=== PATIENT | female | born 1980 | race American Indian/Alaskan Native ===

== ENCOUNTER 2022-02-23 16:37 | Emergency (ER) | payer OTHER ==
[2022-02-23] MEDS ORDERED: levETIRAcetam 1000 MG/NS 0.75% 1,000 MG/100 ML BAG IV ONE (17:08)
--- NOTE | 2022-02-23 17:12 | Emergency Department Report ---
HPI - General Chief Complaint: Seizure Time Seen by Provider: 02/23/22 17:08 - HPI HPI: Room 8 Patient is a 41-year-old female present with chief complaint of seizures. Patient had her first seizure of life approximate 2 months ago and was started on Keppra. Per the the patient has been compliant with the medication and was in the neurologist office today waiting to be seen for follow-up when she had a generalized tonic-clonic seizure. Patient was never seen by the neurologist and EMS was called and patient was transported to the ED. Patient is currently postictal. The patient had a CT head performed at [facility] 02/17/2022 which revealed no acute intracranial abnormalities. ED Past Medical Hx - Past Medical History Hx Headaches / Migraines: Yes Hx Seizures: Yes - Surgical History Past Surgical History?: No - Family History Family history: no significant - Social History Smoking Status: Unknown if ever smoked Substance Use Type: None - Medications Home Medications: Home Medications Medication Instructions Recorded Confirmed Last Taken Type Butalb/Acetamin/Caff 50-325-40 2 tab PO Q8HR PRN #20 tablet 02/23/22 Unknown Rx [Fioricet 50-325-40] ED Review of Systems ROS: Stated complaint: SEIZURE Other details as noted in HPI Comment: Unobtainable due to pts medical conditions Physical Exam - Physical Exam Vital Signs: Vital Signs 02/23/22 17:02 Pulse Rate 95 H Respiratory 18 Rate Blood Pressure 138/72 [Right] O2 Sat by Pulse 99 Oximetry Physical Exam: GENERAL: The patient is well-developed well-nourished female postictal lying on stretcher. [] HEENT: Normocephalic. Atraumatic. Patient looks upward when her eyelids are opened manually NECK: Supple. Trachea midline CHEST/LUNGS: Clear to auscultation. There is no respiratory distress noted. HEART/CARDIOVASCULAR: Regular. There is no tachycardia. There is no gallop rub or murmur. ABDOMEN: Abdomen is soft, nontender. Patient has normal bowel sounds. There is no abdominal distention. SKIN: There is no rash. There is no edema. There is no diaphoresis. NEURO: The patient is currently postictal and not cooperative with neurologic exam. Patient lying on stretcher with no movement MUSCULOSKELETAL: There is no evidence of acute injury. ED Course Vital Signs 02/23/22 17:02 Pulse Rate 95 H Respiratory 18 Rate Blood Pressure 138/72 [Right] O2 Sat by Pulse 99 Oximetry - Reevaluation(s) Reevaluation #1: 02/23/22 20:05 Patient now awake alert and oriented. Patient denies complaints. 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 Patient states she also took Ultram last week for her headaches. Patient was counseled that ultrasound lowers the seizure threshold and this should be discontinued until cleared by a neurologist. I will give the patient a prescription for Fioricet ED Medical Decision Making - Lab Data Result diagrams: 02/23/22 19:03 02/23/22 19:03 - Differential Diagnosis Seizures Critical care attestation.: If time is entered above; I have spent that time in minutes in the direct care of this critically ill patient, excluding procedure time. ED Disposition Clinical Impression: Seizures Disposition: 01 HOME / SELF CARE / HOMELESS Is pt being admited?: No Does the pt Need Aspirin: No Condition: Stable Instructions: Epilepsy, [id number] Additional Instructions: Return to the emergency department should you develop worsening symptoms, inability to tolerate food or liquids, high fever or any other concerns Prescriptions: Butalb/Acetamin/Caff 50-325-40 [Fioricet 50-325-40] 2 tab PO Q8HR PRN #20 tablet PRN Reason: Headache Referrals: MADISON MORELAND MD [Staff Physician] - 3-5 Days (Dr. Moreland is a neurologist. Please follow-up with him for further evaluation) Time of Disposition: 20:07
[2022-02-23 17:22] VITALS: BP 123/69
[2022-02-23 19:32] LABS: BUN/Creatinine Ratio 14; Blood Urea Nitrogen 11 mg/dL (7-17); Calcium 10.3 mg/dL (8.4-10.2); Hemolysis Index 24
[2022-02-23 19:37] LABS: Basophils # (Auto) 0.1 K/mm3 (0.0-0.1); Eosinophils # (Auto) 0.2 K/mm3 (0.0-0.4); Eosinophils % (Auto) 2.2 % (0.0-4.3); Hematocrit 38.8 % (30.3-42.9); Hemoglobin 12.6 gm/dl (10.1-14.3); Lymphocytes # (Auto) 2.7 K/mm3 (1.2-5.4); Mean Corpuscular HGB Conc 33 % (30-34); Mean Corpuscular Volume 91 fl (79-97); Monocytes % (Auto) 9.3 % (0.0-7.3); Platelet Count 271 K/mm3 (140-440); Red Blood Count 4.25 M/mm3 (3.65-5.03); Red Cell Distribution Width 13.4 % (13.2-15.2)
[2022-02-23 19:38] LABS: Basophils % (Auto) 0.7 % (0.0-1.8)
== END 2022-02-23 20:07 | disposition home or self-care (01) ==
LOC: ED 16:37
DX: R56.9 Unspecified convulsions (principal)
CPT/HCPCS: 36415; 80048; 82962; 83735; 84703; 85025; 96374; 99284